=== PATIENT | female | born 1990 | race American Indian/Alaskan Native ===

== ENCOUNTER 2020-09-10 14:03 | Outpatient (CLI) | payer OTHER ==
[2020-09-10 14:38] VITALS: BP 111/71
[2020-09-10] MEDS ORDERED: LACTATED RINGERS 500 ML IV ONE (14:44)
[2020-09-10 15:34] LABS: Bilirubin,Urine NEG (Negative); Blood,Urine NEG (Negative); Color,Urine Yellow (Yellow); Mucus,Urine 1+ /HPF
== END 2020-09-10 17:16 | disposition home or self-care (01) ==
LOC: TRG 14:03 → APU 14:04 → TRG 17:16
PROVIDERS: ATTEND Obstetrics & Gynecology
DX: Z34.93 Encounter for supervision of normal pregnancy, unspecified, third trimester (principal); Z3A.32 32 weeks gestation of pregnancy
CPT/HCPCS: 59025; 81001; 87086